=== PATIENT | male | born 1965 | race Two or more races ===

== ENCOUNTER 2019-03-06 10:30 | Inpatient (IN) | payer OTHER ==
[~2019-03-06] VITALS: Ht 177.8 cm; Wt 72.6 kg
[2019-03-06] MEDS ORDERED: SINGULAIR 10MG10 MG PO (14:05)
[2019-03-06] MEDS ORDERED: AMLODIPINE-OLM1 EACH (14:06)
[2019-03-06] MEDS ORDERED: FENOFIBRIC ACI135 MG PO (14:06)
== END 2019-03-17 18:01 | disposition home or self-care (01) | DRG 330 ==
LOC: SURH 03-14 08:03 → O/R 03-14 08:03 → SURG 03-14 10:30 → SURH 03-14 14:53 → SURG 03-17 08:32
PROVIDERS: ADMIT Colon & Rectal Surgery
PROC: 07BB4ZX Excision of Mesenteric Lymphatic, Percutaneous Endoscopic Approach, Diagnostic (ICD-10-PCS; 2019-03-14)
PROC: 0D1B4Z4 Bypass Ileum to Cutaneous, Percutaneous Endoscopic Approach (ICD-10-PCS; 2019-03-14)
PROC: 3E0F7GC Introduction of Other Therapeutic Substance into Respiratory Tract, Via Natural or Artificial Opening (ICD-10-PCS; 2019-03-14)
PROC: 0DTN4ZZ Resection of Sigmoid Colon, Percutaneous Endoscopic Approach (ICD-10-PCS; principal; 2019-03-14 14:00)
DX: C20 Malignant neoplasm of rectum (principal); C18.7 Malignant neoplasm of sigmoid colon; J45.21 Mild intermittent asthma with (acute) exacerbation; R59.0 Localized enlarged lymph nodes; I11.9 Hypertensive heart disease without heart failure; H10.13 Acute atopic conjunctivitis, bilateral

== ENCOUNTER 2019-04-02 10:30 | Emergency (ER) | payer OTHER ==
[~2019-04-02] VITALS: Ht 177.8 cm; Wt 70.3 kg
[~2019-04-02 10:30] MED LIST: AMLODIPINE-OLM1 EACH; FENOFIBRIC ACI135 MG PO; SINGULAIR 10MG10 MG PO
== END 2019-04-02 19:46 | disposition home or self-care (01) ==
LOC: ER 10:30
DX: R10.2 Pelvic and perineal pain (principal); Z93.2 Ileostomy status

== ENCOUNTER 2019-04-28 07:15 | Inpatient (IN) | payer OTHER ==
[~2019-04-28] VITALS: Ht 172.7 cm; Wt 65.8 kg
[2019-04-28] MEDS ORDERED: ATORVASTATIN CA40 MG PO (07:30)
--- NOTE | 2019-04-28 07:31 | NUR ---
SE RECIBE PACIENTE ALERTA Y ORIENTADO EN LAS GWEN ESFERAS EN AMBULANCIA. EL MISMO REFERIDO DE HOSPITAL DISLA GAGAN POR DOLOR ABDOMINAL DESDE EL CORINE DE BAILEE. SE ORIENTA PACIENTE SOBRE PROCESO Y SE COLOCA EN CAMA K2 PENDIENTE EVALUACION MEDICA.
--- NOTE | 2019-04-28 08:43 | NUR ---
SE LAVINIA MUESTRAS DE [facility] BAJO MEDIDAS ASEPTICAS EN ANTEBRAZO DERECHO BAJO MEDIDAS ASEPTICAS,SE ADMINISTARN MEDICAMENTOS CATHIE ORDEN MEDICA, PACIENTE ORIENTADO SOBRE MEDICACION Y PROCEDIMIENTOS VERBALIZA ENTENDER.
--- NOTE | 2019-04-28 12:01 | NUR ---
PACIENTE PRESENTA NAUSEAS Y VOMITOS, SE NOTIFICA A PARISH. NEAL QUIE EVALUA A PACIENTE Y ORDEN COLOCAR NGT A LOW INTERMITENTE SUCCTION, SE ORIENTA A PACIENTE Y FAMILIAR, REFIEREN ENTENDER, SE EJECUTA ORDEN MEDICA SE PASA NGT POR NARE LT, SE OBSERVA PATENTE AL AUSCULTAR CON ESTETOSCOPIO EN AREA ABDOMINAL. SE OBSERVA POR CAMBIOS.
== END 2019-04-30 12:33 | disposition home or self-care (01) | DRG 389 ==
LOC: ER 07:15 → SURH 15:27
PROVIDERS: ADMIT Colon & Rectal Surgery
PROC: 0DH67UZ Insertion of Feeding Device into Stomach, Via Natural or Artificial Opening (ICD-10-PCS; principal; 2019-04-28)
DX: K56.690 Other partial intestinal obstruction (principal); C20 Malignant neoplasm of rectum; B37.41 Candidal cystitis and urethritis; E44.0 Moderate protein-calorie malnutrition; B96.1 Klebsiella pneumoniae [K. pneumoniae] as the cause of diseases classified elsewhere; I11.9 Hypertensive heart disease without heart failure; E78.00 Pure hypercholesterolemia, unspecified; E78.1 Pure hyperglyceridemia; H10.13 Acute atopic conjunctivitis, bilateral; Z93.2 Ileostomy status

== ENCOUNTER 2019-05-04 12:01 | Inpatient (IN) | payer OTHER ==
[~2019-05-04] VITALS: Ht 30.5 cm; Wt 5.0 kg
[~2019-05-04 12:01] MED LIST changes: +ATORVASTATIN CA40 MG PO
== END 2019-05-09 12:31 | disposition home or self-care (01) | DRG 394 ==
LOC: ER 12:01 → SURG 21:16
PROVIDERS: ADMIT Colon & Rectal Surgery
PROC: BW21Y0Z Computerized Tomography (CT Scan) of Abdomen and Pelvis using Other Contrast, Unenhanced and Enhanced (ICD-10-PCS; principal; 2019-05-04)
PROC: BV44ZZZ Ultrasonography of Scrotum (ICD-10-PCS; 2019-05-06)
DX: K94.13 Enterostomy malfunction (principal); K56.690 Other partial intestinal obstruction; C20 Malignant neoplasm of rectum; J45.21 Mild intermittent asthma with (acute) exacerbation; E72.51 Non-ketotic hyperglycinemia; I11.9 Hypertensive heart disease without heart failure; J30.89 Other allergic rhinitis; N43.42 Spermatocele of epididymis, multiple; N50.3 Cyst of epididymis

== ENCOUNTER 2019-06-22 16:33 | Inpatient (IN) | payer OTHER ==
[~2019-06-22] VITALS: Ht 177.8 cm; Wt 68.9 kg
[2019-07-06] MEDS ORDERED: ADVAIR 100-501 EACH IH (14:24)
[2019-07-06] MEDS ORDERED: ZYRTEC10 M3 PO (14:24)
[2019-07-13] MEDS ORDERED: AMLODIPINE-BEN1 EAC2 PO (09:25)
[2019-07-13] MEDS ORDERED: ONDANSETRON HCL8 MG PO (09:25)
[2019-07-13] MEDS ORDERED: WIXELA 250-501 EACH (09:25)
[2019-07-13] MEDS ORDERED: RESTORIL30 MG PO (09:26)
[2019-07-13] MEDS ORDERED: LORAZEPAM1 MG (09:26)
[2019-07-13] MEDS ORDERED: SERTRALINE HCL50 MG (09:26)
== END 2019-07-16 13:11 | disposition home or self-care (01) | DRG 331 ==
LOC: SURH 07-12 07:17 → O/R 07-12 07:17 → SURG 07-12 12:15 → SURH 07-12 19:40
PROVIDERS: ADMIT Colon & Rectal Surgery
PROC: 3E0F7GC Introduction of Other Therapeutic Substance into Respiratory Tract, Via Natural or Artificial Opening (ICD-10-PCS; 2019-07-12)
PROC: 0DSB4ZZ Reposition Ileum, Percutaneous Endoscopic Approach (ICD-10-PCS; principal; 2019-07-12 12:45)
DX: Z43.2 Encounter for attention to ileostomy (principal); Z85.048 Personal history of other malignant neoplasm of rectum, rectosigmoid junction, and anus; I11.9 Hypertensive heart disease without heart failure; J45.20 Mild intermittent asthma, uncomplicated

== ENCOUNTER → 2019-06-22 | Outpatient (CLI) | payer OTHER | END | disposition home or self-care (01) | LOC: RAD 13:39 | DX: C20 Malignant neoplasm of rectum (principal) ==

== ENCOUNTER 2020-05-17 07:00 | Day surgery (SDC) | payer OTHER ==
[~2020-05-17 07:00] MED LIST changes: +ADVAIR 100-501 EACH IH; +AMLODIPINE-BEN1 EAC2 PO; +LORAZEPAM1 MG; +ONDANSETRON HCL8 MG PO; +RESTORIL30 MG PO; +SERTRALINE HCL50 MG; +WIXELA 250-501 EACH; +ZYRTEC10 M3 PO
== END 2020-05-17 11:38 | disposition home or self-care (01) ==
LOC: AMB-ENDOS 07:00
PROVIDERS: ATTEND Colon & Rectal Surgery
DX: D12.3 Benign neoplasm of transverse colon (principal); D12.4 Benign neoplasm of descending colon; K52.89 Other specified noninfective gastroenteritis and colitis; Z20.828 Contact with and (suspected) exposure to other viral communicable diseases